=== PATIENT | female | born 2000 | race Caucasian/White ===

== ENCOUNTER 2024-03-16 12:42 | Emergency (ER) | payer BC, SELFPAY ==
--- NOTE | ~2024-03-16 | US_ITS ---
EXAMINATION: US venous doppler [facility] DATE: 03/16/2024 14:56 INDICATION: Left lower limb swelling. Left calf pain. TECHNIQUE: Grayscale ultrasound images without and with compression and Doppler ultrasound images of the left lower extremity veins were obtained. COMPARISON: None. FINDINGS: The visualized portions of left common femoral vein, profunda (deep) femoral vein, femoral vein, popl iteal vein, peroneal veins, posterior tibial veins, and greater saphenous vein outflow are patent. IMPRESSION: 1. No deep venous thrombosis. Reviewed, dictated and finalized at location A. [employer]
[2024-03-16 12:50] VITALS: BP 170/98; PULSE 108; RESP 18; TEMP 36.6; O2SAT 100
[2024-03-16 14:27] VITALS: BP 146/102; PULSE 107; RESP 16; TEMP 37.3; O2SAT 100
[2024-03-16 15:55] LABS: Basophils Absolute Auto 0.1 K/mm3 (0.0-0.1); Basophils Percent Auto 0.5 % (0.2-1.2); Eosinophils Absolute Auto 0.3 K/mm3 (0-0.3); Eosinophils Percent Auto 2.5 % (0-4.4); Hemoglobin 10.8 g/dL (12.0-15.0); Immature Granulocyte Absolute 0.04 K/mm3 (0.00-0.031); Immature Granulocyte Percent A 0.4 % (0-0.5); Lymphocytes Absolute Auto 2.04 K/mm3 (0.9-3.2); Lymphocytes Percent Auto 19.6 % (18.3-44.2); Mean Corpuscular HGB Conc 30.9 g/dl (32-36); Mean Corpuscular Hemoglobin 21.8 pg (26-34); Mean Corpuscular Volume 70.6 fl (80-100); Mean Platelet Volume 8.4 fl (7.4-10.4); Monocytes Absolute Auto 0.7 K/mm3 (0.1-0.6); Monocytes Percent Auto 6.7 % (2.6-8.5); Neutrophils Absolute Auto 7.3 K/mm3 (1.3-6.7); Neutrophils Percent Auto 70.3 % (45.5-73.1); Platelet Count Result 320 k/mm3 (150-375); Red Blood Count 4.96 M/mm3 (4.2-5.4); Red Cell Distribution Width 16.7 % (11.5-14.5); White Blood Count 10.4 K/mm3 (4.5-10.0)
[2024-03-16 16:05] LABS: Alanine Aminotransferase 28 U/L (6-35); Albumin Level 4.1 g/dL (3.5-5.1); Alkaline Phosphatase 114 U/L (38-126); Anion Gap 8 mmol/L (4-12); Aspartate Amino Transferase 29 U/L (14-36); Bilirubin,Total 0.7 mg/dL (0.2-1.3); Blood Urea Nitrogen 7 mg/dL (7-17); Calcium 8.9 mg/dL (8.4-10.2); Carbon Dioxide 25 mmol/L (22-30); Chloride 105 mmol/L (98-107); Estimated CRCL calculation 174 ml/min; Estimated Glomerular Filt Rate > 60; Glucose 100 mg/dL (65-110); Potassium 3.6 mmol/L (3.4-5.0); Sodium 138 mmol/L (137-145)
[2024-03-16 16:18] LABS: Hypochromasia 2+; Platelet Estimate Adequate (Adequate)
[2024-03-16 16:19] LABS: Microcytosis 1+ (NORMAL)
[2024-03-16 16:20] LABS: Ovalocytes 1+; Schistocytes None Seen
--- NOTE | 2024-03-16 17:16 | ED_ITS ---
HPI - General Adult General Chief complaint: Wound/Laceration Stated complaint: LLE cellulitis Time Seen by Provider: 03/16/24 14:10 History of Present Illness HPI narrative: Patient is a 23-year-old female who presents ER with concern for cellulitis left agarwal. Ongoing for last month. Initially a singular red hot area and was started on Bactrim. That area is gone away now she has a separate circular area of red nodules that are warm and tender. She is on her 8th of 10 days of clindamycin. Mild fever and fatigue today. No chest pain or shortness of breath. No bowel dysfunction. Denies any medical issues. Mild swelling of left leg. She has not scratched or bit by her cat. Denies trauma to the leg. Review of Systems 2 Review of Systems: All systems reviewed & are unremarkable except as noted in HPI and below Constitutional: Constitutional: Reports no additional constitutional complaints ENT: Reports system reviewed and no additional complaints, except as documented Cardiovascular: Cardiovascular: Reports no additional cardiovascular complaints Integumentary/Breasts: Skin/Breast: Reports erythema and Reports rash PMFSH Past Medical History Medical History (Updated 03/16/24 @ 18:46 by Lupillo Abel MD) ADHD Surgical History Surgical History (Updated 03/16/24 @ 18:46 by Lupillo Abel MD) No history of previous surgery Exam 2 Narrative: GENERAL: Well-appearing, well-nourished, and in no acute distress. HEAD: Normocephalic, atraumatic. ENT: Mucous membranes moist. CHEST: Clear to auscultation. No respiratory distress. HEART: Regular rate and rhythm. Normal peripheral pulses. EXTREMITIES: Normal range of motion. 1+ edema left lower extremity. SKIN: Warm, dry. Left agarwal with red circular nodular rash without pustules or vesicles. No excoriations. NEURO: Alert and oriented x3. PSYCH: Normal mood and affect. Course Course Emergency Course: patient resting comfortably. Discussed erythema nodosum. Appropriate discharge home. Will give topical mupirocin but oral antibiotics could increased possibility of C diff colitis. Vital Signs Vital signs: Vital Signs Temperature 97.8 F 03/16/24 12:50 Pulse Rate 108 H 03/16/24 12:50 Respiratory Rate 18 03/16/24 12:50 Blood Pressure 170/98 H 03/16/24 12:50 Pulse Oximetry 100 03/16/24 12:50 Oxygen Delivery Room Air 03/16/24 12:50 Temperature 99.2 F 03/16/24 14:27 Pulse Rate 107 H 03/16/24 14:27 Respiratory Rate 16 03/16/24 14:27 Blood Pressure 146/102 H 03/16/24 14:27 Pulse Oximetry 100 03/16/24 14:27 Oxygen Delivery Room Air 03/16/24 12:50 Medical Decision Making Vital Signs Vital Signs: Vital Signs Temperature 97.8 F 03/16/24 12:50 Pulse Rate 108 H 03/16/24 12:50 Respiratory Rate 18 03/16/24 12:50 Blood Pressure 170/98 H 03/16/24 12:50 Pulse Oximetry 100 03/16/24 12:50 Oxygen Delivery Room Air 03/16/24 12:50 Temperature 99.2 F 03/16/24 14:27 Pulse Rate 107 H 03/16/24 14:27 Respiratory Rate 16 03/16/24 14:27 Blood Pressure 146/102 H 03/16/24 14:27 Pulse Oximetry 100 03/16/24 14:27 Oxygen Delivery Room Air 03/16/24 12:50 Lab Data 03/16/24 15:49 03/16/24 15:49 Labs: Lab Results 03/16/24 Range/Units 15:49 WBC 10.4 H (4.5-10.0) K/mm3 RBC 4.96 (4.2-5.4) M/mm3 Hgb 10.8 L (12.0-15.0) g/dL Hct 35.0 L (37.0-47.0) % MCV 70.6 L (80-100) fl MCH 21.8 L (26-34) pg MCHC 30.9 L (32-36) g/dl RDW 16.7 H (11.5-14.5) % Plt Count 320 (150-375) k/mm3 MPV 8.4 (7.4-10.4) fl Immature Gran % (Auto) 0.4 (0-0.5) % Neut % (Auto) 70.3 (45.5-73.1) % Lymph % (Auto) 19.6 (18.3-44.2) % [place] % (Auto) 6.7 (2.6-8.5) % Eos % (Auto) 2.5 (0-4.4) % Baso % (Auto) 0.5 (0.2-1.2) % Lymph # (Auto) 2.04 (0.9-3.2) K/mm3 [place] # (Auto) 0.7 H (0.1-0.6) K/mm3 Eos # (Auto) 0.3 (0-0.3) K/mm3 Baso # (Auto) 0.1 (0.0-0.1) K/mm3 Abs Immat Gran (auto) 0.04 H (0.00-0.031) K/mm3 Absolute Neuts (auto) 7.3 H (1.3-6.7) K/mm3 Absolute Nucleated RBC 0.000 (0.0-0.012) K/mm3 Nucleated RBC % 0.0 (0.0-0.2) % Platelet Estimate Adequate (Adequate) Hypochromasia 2+ Microcytosis 1+ (NORMAL) Ovalocytes 1+ Schistocytes None seen Sodium 138 (137-145) mmol/L Potassium 3.6 (3.4-5.0) mmol/L Chloride 105 (98-107) mmol/L Carbon Dioxide 25 (22-30) mmol/L Anion Gap 8 (4-12) mmol/L BUN 7 (7-17) mg/dL Creatinine 0.50 L (0.7-1.0) mg/dL Estim Creat Clear Calc 174 ml/min Estimated GFR > 60 (59 - ) Glucose 100 (65-110) mg/dL Calcium 8.9 (8.4-10.2) mg/dL Total Bilirubin 0.7 (0.2-1.3) mg/dL AST 29 (14-36) U/L ALT 28 (6-35) U/L Alkaline Phosphatase 114 (38-126) U/L Total Protein 7.0 (6.3-8.2) g/dL Albumin 4.1 (3.5-5.1) g/dL Imaging Data Radiologist's impression: ITS Impressions Venous Doppler Study 03/16/24 14:57 IMPRESSION: 1. No deep venous thrombosis. Discharge Plan Discharge Clinical Impression: Erythema nodosum Patient Disposition: Home, Self-Care Condition: Stable Instructions: Antibiotic Form, Connective Tissue Disorders (ED) Additional Instructions: Follow-up with your primary care doctor to discuss additional treatment. Your being given mupirocin ointment in case there is infection, however you been appropriately treated with oral antibiotics. Suspect this may be a more systemic inflammatory issue that needs to be worked up by your primary care physician. Patient Language: Pashto Prescriptions: New mupirocin 2 % ointment 1 applic topical TID Qty: 15 0RF Follow-up/Referrals: Arnav Roberson MD [Physician] - 1 Week PHYSICIAN,RENTAL COUNTER CLERK [Primary Care Provider] -
== END 2024-03-16 17:40 | disposition home or self-care (01) ==
PROVIDERS: Emergency Provider Emergency Medicine
DX: L52 Erythema nodosum (principal); F90.9 Attention-deficit hyperactivity disorder, unspecified type
CPT/HCPCS: 36415; 80053; 85025; 93971; 99284